=== PATIENT | male | born 1975 | race Caucasian/White ===

== ENCOUNTER 2022-12-24 22:12 | Emergency (ER) | payer OTHER ==
[~2022-12-24] VITALS: Ht 185.4 cm; Wt 112.7 kg
[2022-12-24] MEDS ORDERED: NITROGLYCERIN 1GM OINT 1 INCH/1GM TD ONE (22:30)
[2022-12-24 22:49] LABS: BASOPHILS % (AUTO) 0.4 % (0.0-5.0); EOSINOPHILS % (AUTO) 0.3 % (0.0-8.0); HEMATOCRIT 47.8 % (42-54); LYMPHOCYTES % (AUTO) 23.3 % (21.0-51.0); MEAN CORPUSCULAR HEMOGLOBIN 31.6 pg (27.0-33.0); MEAN CORPUSCULAR HGB CONC 34.3 g/dL (32.0-36.0); MEAN CORPUSCULAR VOLUME 92.1 fL (79-99); MONOCYTES % (AUTO) 6.5 % (3.0-13.0); NEUTROPHILS % (AUTO) 68.8 % (40.0-77.0); PLATELET COUNT (AUTO) 301 K/uL (130-400); RED BLOOD CELL COUNT(AUTO) 5.19 MIL/uL (4.50-6.20); RED CELL DISTRIBUTION WIDTH 12.8 % (11.0-15.5); WHITE BLOOD COUNT (AUTO) 16.4 K/uL (4.8-10.8)
[2022-12-24 22:50] LABS: APPEARANCE,URINE CLEAR (CLEAR); BILIRUBIN,URINE NEGATIVE (NEGATIVE); COLOR,URINE COLORLESS (YELLOW); GLUCOSE, URINE (UA) NEGATIVE (NEGATIVE); KETONES,URINE NEGATIVE (NEGATIVE); LEUKOCYTE ESTERASE ,URINE NEGATIVE Leu/uL (NEGATIVE); NITRATE,URINE NEGATIVE (NEGATIVE); OCCULT BLOOD,URINE NEGATIVE (NEGATIVE); PH,URINE 6.5 (5.0-8.0); PROTEIN,URINE NEGATIVE (NEGATIVE); UROBILINOGEN,URINE 0.2 mg/dL (0.2-1.0)
[2022-12-24 22:56] LABS: CREATININE 1.1 mg/dL (0.5-1.5); POTASSIUM 3.7 mmol/L (3.5-5.1)
[2022-12-24 23:01] LABS: ALBUMIN 4.3 g/dL (3.5-5.0); TOTAL PROTEIN, SERUM 7.6 g/dL (6.0-8.3)
[2022-12-24 23:17] LABS: B-TYPE NATRIURETIC PEPTIDE 43 pg/mL (0-100)
[2022-12-24 23:21] VITALS: BP 168/96
[2022-12-24] MEDS ORDERED: FUROSEMIDE 40MG VIAL ONE (23:27)
[2022-12-24] MEDS ORDERED: FUROSEMIDE 40MG VIAL IV ONE (23:30)
== END 2022-12-24 23:50 | disposition home or self-care (01) ==
LOC: EDH 22:12
DX: R60.0 Localized edema (principal); M79.89 Other specified soft tissue disorders; E11.9 Type 2 diabetes mellitus without complications; E78.00 Pure hypercholesterolemia, unspecified; I10 Essential (primary) hypertension; Z98.890 Other specified postprocedural states
CPT/HCPCS: 99285; 96374; 71045; 84484; 80053; 83880; 85025; 81003; 36415; 93005; J1940

== ENCOUNTER 2023-02-18 16:06 | Emergency (ER) | payer OTHER ==
[~2023-02-18] VITALS: Ht 188 cm; Wt 122.5 kg
[2023-02-18 16:47] LABS: BASOPHILS % (AUTO) 0.6 % (0.0-5.0); EOSINOPHILS % (AUTO) 3.2 % (0.0-8.0); HEMATOCRIT 46.4 % (42-54); LYMPHOCYTES % (AUTO) 26.9 % (21.0-51.0); MEAN CORPUSCULAR HEMOGLOBIN 31.5 pg (27.0-33.0); MEAN CORPUSCULAR HGB CONC 35.1 g/dL (32.0-36.0); MEAN CORPUSCULAR VOLUME 89.6 fL (79-99); MONOCYTES % (AUTO) 6.6 % (3.0-13.0); NEUTROPHILS % (AUTO) 62.4 % (40.0-77.0); PLATELET COUNT (AUTO) 237 K/uL (130-400); RED BLOOD CELL COUNT(AUTO) 5.18 MIL/uL (4.50-6.20); WHITE BLOOD COUNT (AUTO) 11.7 K/uL (4.8-10.8)
[2023-02-18 16:57] LABS: CREATININE 1.8 mg/dL (0.5-1.5); POTASSIUM 3.9 mmol/L (3.5-5.1)
[2023-02-18] MEDS ORDERED: IPRATROPIUM/ALBUTEROL SULFATE 3 ML SOLUTION IH ONE (17:00)
[2023-02-18] MEDS ORDERED: SOLU-MEDROL 125MG VIAL IVP ONE (17:00)
[2023-02-18 17:06] LABS: ALBUMIN 4.2 g/dL (3.5-5.0)
[2023-02-18 17:21] LABS: B-TYPE NATRIURETIC PEPTIDE < 5 pg/mL (0-100)
[2023-02-18] MEDS ORDERED: ALBU2SYR3 PO (18:16)
[2023-02-18] MEDS ORDERED: PRED50TA2 PO (18:16)
[2023-02-18 18:18] VITALS: BP 126/72
== END 2023-02-18 18:28 | disposition home or self-care (01) ==
LOC: EDH 16:06
DX: R06.2 Wheezing (principal); R06.02 Shortness of breath; R50.9 Fever, unspecified; R05.9 Cough, unspecified; I11.0 Hypertensive heart disease with heart failure; I50.9 Heart failure, unspecified; E11.9 Type 2 diabetes mellitus without complications; E78.00 Pure hypercholesterolemia, unspecified; Z20.822 Contact with and (suspected) exposure to COVID-19; Z98.890 Other specified postprocedural states
CPT/HCPCS: 99285; 96374; 71045; 87635; 84484; 80053; 83880; 85025; 87880; 87804 ×2; 83605; 36415; 93005; 94640; C9803; J2930

== ENCOUNTER 2023-02-27 14:44 | Emergency (ER) | payer OTHER ==
[~2023-02-27] VITALS: Ht 185.4 cm; Wt 107.0 kg
[~2023-02-27 14:44] MED LIST: ALBU2SYR3 PO; PRED50TA2 PO
[2023-02-27 14:49] VITALS: BP 147/87
[2023-02-27 15:35] LABS: BASOPHILS % (AUTO) 0.2 % (0.0-5.0); EOSINOPHILS % (AUTO) 0.1 % (0.0-8.0); HEMATOCRIT 43.4 % (42-54); LYMPHOCYTES % (AUTO) 11.3 % (21.0-51.0); MEAN CORPUSCULAR HEMOGLOBIN 31.1 pg (27.0-33.0); MEAN CORPUSCULAR HGB CONC 34.6 g/dL (32.0-36.0); MONOCYTES % (AUTO) 3.4 % (3.0-13.0); NEUTROPHILS % (AUTO) 84.1 % (40.0-77.0); PLATELET COUNT (AUTO) 252 K/uL (130-400); RED BLOOD CELL COUNT(AUTO) 4.82 MIL/uL (4.50-6.20); RED CELL DISTRIBUTION WIDTH 12.3 % (11.0-15.5); WHITE BLOOD COUNT (AUTO) 15.8 K/uL (4.8-10.8)
[2023-02-27 15:45] LABS: CREATININE 1.1 mg/dL (0.5-1.5); POTASSIUM 4.1 mmol/L (3.5-5.1)
[2023-02-27 16:39] LABS: ERYTHROCYTE SEDIMENTATION RATE 17 MM/HR (0-15)
[2023-02-27] MEDS ORDERED: PRED50TA2 PO (16:45)
[2023-02-27] MEDS ORDERED: SOLU-MEDROL 125MG VIAL IM ONE (17:00)
[2023-02-27] MEDS ORDERED: ALLO300T2 PO (17:10)
== END 2023-02-27 17:14 | disposition home or self-care (01) ==
LOC: EDH 14:44
DX: M10.9 Gout, unspecified (principal); E11.9 Type 2 diabetes mellitus without complications; I48.91 Unspecified atrial fibrillation; J44.9 Chronic obstructive pulmonary disease, unspecified; Z98.890 Other specified postprocedural states
CPT/HCPCS: 99283; 80048; 85025; 85651; 36415; 96372; J2930